=== PATIENT | male | born 1960 | race Caucasian/White ===

== ENCOUNTER → 2021-11-24 | Outpatient (CLI) | payer OTHER ==
[2021-11-24 13:36] LABS: Stool Occult Bld Immuno 1 Negative (NEGATIVE)
== END | disposition home or self-care (01) ==
LOC: LAB SHORT 08:45
PROVIDERS: Internal Medicine Endocrinology, Diabetes & Metabolism
DX: Z12.11 Encounter for screening for malignant neoplasm of colon (principal)
CPT/HCPCS: G0328

== ENCOUNTER → 2025-01-05 | Outpatient (CLI) | payer OTHER ==
[2025-01-05 21:10] LABS: Creatinine, Urine Random 135.0 mg/dL (27.00-270.00); Microalb/Creat Ratio UR, Rand 12.518 mg/g (0.000-30.000); Microalbumin, Random Urine 16.9 mg/L (0.000-20.000)
== END ==
LOC: LAB SHORT 08:30 → LAB 08:30
PROVIDERS: Nurse Practitioner Family
DX: E11.9 Type 2 diabetes mellitus without complications (principal)
CPT/HCPCS: 82043; 82570